=== PATIENT | female | born 1995 | race Caucasian/White ===

== ENCOUNTER 2018-09-30 16:03 | Emergency (ER) | payer OTHER ==
[~2018-09-30] VITALS: Ht 165.1 cm; Wt 83.6 kg
[2018-09-30 16:39] LABS: HEMOGLOBIN 12.8 g/dl (12.0-15.5); MEAN CORPUSCULAR HEMOGLOBIN 30.6 pg (27.0-33.0); MEAN CORPUSCULAR HGB CONC 32.8 g/dl (32.0-36.5); MEAN CORPUSCULAR VOLUME 93.3 fl (80.0-96.0); PLATELET COUNT, AUTOMATED 232 10^3/uL (150-450); RED BLOOD COUNT 4.18 10^6/uL (4.00-5.40); WHITE BLOOD COUNT 7.9 10^3/uL (4.0-10.0)
--- NOTE | 2018-09-30 18:13 | REPVR ---
EXAM: US Pelvis Complete, Transabdominal and US Pelvis, Transvaginal EXAM DATE/TIME: 09/30/2018 5:23 PM CLINICAL HISTORY: 23 years old, female; Other: Vag bleeding post iud placement; Additional info: Heavy vag bleeding, pls check position of iud TECHNIQUE: Imaging protocol: Real-time transabdominal and transvaginal pelvic ultrasound (complete) with image documentation. Transvaginal imaging was used for better evaluation of the endometrium and adnexa. COMPARISON: No relevant prior studies available. FINDINGS: Uterus/cervix: Uterus is retroverted. Uterus measures 7.1 x 4.4 x 5.6 cm. The IUD appears appropriately positioned. AP endometrial stripe thickness measures 8 mm. Right adnexa: Right ovary measures 2.2 x 3.8 x 1.8 cm. Positive right ovarian blood flow. Left adnexa: Left ovary measures 1.5 x 2.2 x 2.2 cm. Positive blood flow. Free fluid: Trace, physiologic amount free fluid in the pelvis. Bladder: No filling defect within the bladder lumen. IMPRESSION: IUD appears appropriately positioned. Electronically signed by: Teena Lopez On 09/30/2018 18:13:22 PM
[2018-09-30 18:23] VITALS: BP 135/82
== END 2018-09-30 18:25 | disposition home or self-care (01) ==
LOC: M ED 16:03
DX: N92.0 Excessive and frequent menstruation with regular cycle (principal); Z97.5 Presence of (intrauterine) contraceptive device; R10.31 Right lower quadrant pain; Z88.8 Allergy status to other drugs, medicaments and biological substances